=== PATIENT | female | born 1995 | race Hispanic/Latino ===

== ENCOUNTER 2021-10-25 18:50 | Emergency (ER) | payer SELFPAY ==
[2021-10-25] MEDS ORDERED: Fluorescein Opthalmic Strip ONE (20:16)
[2021-10-25] MEDS ORDERED: Bupivacaine 0.25% 10 ML VIAL ONE (20:16)
[2021-10-25] MEDS ORDERED: Bupivacaine 0.5% 10 ML VIAL ONE (20:17)
[2021-10-25] MEDS ORDERED: Proparacaine 0.5% Opth 15 ML BOT ONE (20:19)
[2021-10-25] MEDS ORDERED: Erythromycin Base 0.5% Oint 1 GM TUBE ONE (21:03)
== END 2021-10-25 21:06 | disposition home or self-care (01) ==
LOC: ERS 18:50
DX: H10.13 Acute atopic conjunctivitis, bilateral (principal)
CPT/HCPCS: 99283; J3490; S0020